=== PATIENT | female | born 1980 | race Caucasian/White ===

== ENCOUNTER 2017-08-24 08:14 | Day surgery (SDC) | payer OTHER ==
[2017-08-24 09:15] LABS: ADD MAN DIFF? NO
[2017-08-24 09:19] LABS: WHITE BLOOD COUNT 6.4 10^3/ul (4.8-10.8)
[2017-08-24 09:19] LABS: BASOPHIL # 0.1 10^3/ul (0.0-0.1); BASOPHILS % 1.3 % (0.0-2.0); EOSINOPHILS # 0.1 10^3/ul (0.0-0.5); HEMATOCRIT 37.7 % (37.0-47.0); HEMOGLOBIN 12.6 g/dl (12.0-16.0); LYMPHOCYTES # 1.8 10^3/ul (0.8-2.9); LYMPHOCYTES % 28.8 % (15.0-51.0); MEAN CORPUSCULAR HEMOGLOBIN 29.9 pg (29.0-33.0); MEAN CORPUSCULAR HGB CONC 33.4 g/dl (32.0-37.0); MEAN CORPUSCULAR VOLUME 89.3 fl (82.0-101.0); MEAN PLATELET VOLUME 10.3 fl (7.4-10.4); MONOCYTE # 0.3 10^3/ul (0.3-0.9); MONOCYTES % 4.2 % (0.0-11.0); NEUTROPHIL # 4.1 10^3/ul (1.6-7.5); NEUTROPHILS % 63.5 % (39.0-77.0); PLATELET COUNT 270 10^3/UL (140-415); RED BLOOD COUNT 4.22 10^6/ul (4.20-5.40); RED CELL DISTRIBUTION WIDTH 12.8 % (11.5-14.5)
[2017-08-24 09:37] LABS: ALANINE AMINOTRANSFERASE 22 IU/L (13-69); ALBUMIN 3.8 g/dl (3.3-4.9); ALBUMIN/GLOBULIN RATIO 1.15; ALKALINE PHOSPHATASE 58 IU/L (42-121); ANION GAP 16 (8-16); ASPARTATE AMINO TRANSFERASE 21 IU/L (15-46); BILIRUBIN,INDIRECT 0.8 mg/dl (0-1.1); BILIRUBIN,TOTAL 0.8 mg/dl (0.2-1.3); CARBON DIOXIDE 24 mmol/L (21-31); CHLORIDE 104 mmol/L (97-110); GLUCOSE 90 mg/dl (70-220); TOTAL PROTEIN 7.1 g/dl (6.1-8.1)
[2017-08-24 09:38] LABS: BLOOD UREA NITROGEN 7 mg/dl (7-20); CREATININE 0.41 mg/dl (0.44-1.00); POTASSIUM 4.1 mmol/L (3.5-5.1); SODIUM 140 mmol/L (135-144)
[2017-08-24 09:43] LABS: INR 0.93; PROTIME 12.5 Sec (11.9-14.9)
[2017-08-24 09:44] LABS: PARTIAL THROMBOPLASTIN TIME 28.9 Sec (25.0-35.0)
[2017-08-24] MEDS ORDERED: GLYCOPYRROLATE 0.4 MG INJ (10:16)
[2017-08-24] MEDS ORDERED: CEFAZOLIN 1 GM INJ (10:16)
[2017-08-24] MEDS ORDERED: NEOSTIGMINE 3 MG/3 ML SYRINGE (10:16)
[2017-08-24] MEDS ORDERED: ROCURONIUM 50 MG INJ (10:16)
[2017-08-24] MEDS ORDERED: PROPOFOL 20 ML (10:16)
[2017-08-24] MEDS ORDERED: ONDANSETRON 4 MG INJ (10:17)
[2017-08-24] MEDS ORDERED: FENTAnyl 50 MCG/ML VIAL (10:17)
[2017-08-24] MEDS ORDERED: DEXAMETHASONE 4 MG/ML 1 ML INJ (10:17)
[2017-08-24] MEDS ORDERED: MIDAZOLAM 1 MG/ML 2 ML INJ (10:17)
[2017-08-24] MEDS ORDERED: OXYTOCIN 10 UNIT INJ (10:57)
[2017-08-24] MEDS ORDERED: MIDAZOLAM 1 MG/ML 2 ML INJ IV (11:00)
[2017-08-24] MEDS ORDERED: FENTAnyl 50 MCG/ML VIAL IV ×3 (11:00)
[2017-08-24] MEDS ORDERED: LABETALOL HCL 20MG INJ IV (11:00)
[2017-08-24] MEDS ORDERED: EPHEDrine SULFATE 50 MG/5 ML SYG IV (11:00)
[2017-08-24] MEDS ORDERED: ALBUTEROL 0.083% (NEB) 2.5 MG/3 ML AMP HHN (11:00)
[2017-08-24] MEDS ORDERED: HYDROmorphONE 1 MG/5 ML IV SYRINGE IV ×3 (11:00)
[2017-08-24] MEDS ORDERED: DIPHENHYDRAMINE 50 MG INJ IV (11:00)
[2017-08-24] MEDS ORDERED: hydrALAzine 20 MG INJ IV (11:00)
[2017-08-24] MEDS ORDERED: OXYCODONE/ACETAMINOPHEN (5/325) TAB PO ×2 (11:00)
[2017-08-24] MEDS ORDERED: MEPERIDINE 25 MG INJ IV (11:00)
[2017-08-24] MEDS ORDERED: TRIMETHOBENZAMIDE 100 MG/ML VIAL IM (11:00)
[2017-08-24] MEDS ORDERED: ONDANSETRON 4 MG INJ IV (11:00)
[2017-08-24] MEDS ORDERED: IPRATROPIUM (NEB) 0.5 MG/2.5 ML AMP HHN (11:00)
== END 2017-08-24 12:48 | disposition home or self-care (01) ==
LOC: SDS 08:14
DX: O02.1 Missed abortion (principal)
CPT/HCPCS: 59820; 71045; 80053; 84703; 85025; 85610; 85730; 86850; 86900; 86901; 88305; 93005

== ENCOUNTER 2018-10-24 17:52 | Outpatient (CLI) | payer OTHER ==
[2018-10-24 19:40] LABS: ADD UMIC NO; UR ASCORBIC ACID 20 mg/dL (NEGATIVE); UR BILIRUBIN (Dip) NEGATIVE (NEGATIVE); UR BLOOD (Dip) NEGATIVE (NEGATIVE); UR CLARITY SLIGHTLY CLOUDY (CLEAR); UR COLOR YELLOW (YELLOW); UR GLUCOSE (Dip) NEGATIVE (NEGATIVE); UR KETONES (Dip) NEGATIVE (NEGATIVE); UR LEUKOCYTE ESTERASE (Dip) NEGATIVE Leu/ul (NEGATIVE); UR NITRITE (Dip) NEGATIVE (NEGATIVE); UR RBC 1 /HPF (0-5); UR SPECIFIC GRAVITY (Dip) 1.014 (1.003-1.030); UR SQUAMOUS EPITHELIAL CELL MODERATE /HPF (FEW); UR TOTAL PROTEIN (Dip) NEGATIVE (NEGATIVE); UR UROBILINOGEN (Dip) NEGATIVE (NEGATIVE); UR WBC 2 /HPF (0-5)
== END 2018-10-24 21:35 | disposition home or self-care (01) ==
LOC: OBT 17:52 → L-D 17:55 → OBT 21:35
DX: O62.9 Abnormality of forces of labor, unspecified (principal); Z3A.29 29 weeks gestation of pregnancy
CPT/HCPCS: 76817; 76818; 81001; 81003; 87086